=== PATIENT | male | born 1955 | race Two or more races ===

== ENCOUNTER 2022-05-09 22:39 | Emergency (ER) | payer OTHER ==
[~2022-05-09] VITALS: Ht 182.9 cm; Wt 93.9 kg
[2022-05-09 22:47] VITALS: BP 144/97
--- NOTE | 2022-05-09 23:27 | NUR ---
PT TAKEN TO BED 9
--- NOTE | 2022-05-09 23:31 | NUR ---
66 yo m bib self with c/c of rash to face and neck x1 month. +itching. denies pain and trouble breathing. pt went to [facility] and was given siver sulfadiazine, triamcinolone with no relief. pt states he takes smita daily and feels more relief with that. pt denies new soap, clothes and detergent. denies hx, rx and allergies
--- NOTE | 2022-05-10 00:40 | NUR ---
Dr. Camara examining patient.
[2022-05-10] MEDS ORDERED: MECLIZINE 25 MG TAB PO ONE (00:55)
[2022-05-10] MEDS ORDERED: SULFAMETH/TRIMETH DS 800/160MG 1 TAB PO ONE (00:55)
[2022-05-10] MEDS ORDERED: ONDANSETRON 4 MG ODT PO ONE (00:55)
--- NOTE | 2022-05-10 01:03 | NUR ---
pt medicated per orders.
[2022-05-10] MEDS ORDERED: diphenhydrAMINE 50 MG/ML VIAL IM ONE (01:05)
[2022-05-10] MEDS ORDERED: DIPH-988 PO (01:31)
[2022-05-10] MEDS ORDERED: SULF-59 PO (01:31)
[2022-05-10] MEDS ORDERED: KEN.1C TP (01:31)
[2022-05-10 02:08] VITALS: BP 146/89
--- NOTE | 2022-05-10 02:08 | NUR ---
Patient discharged with v/s stable. Written and verbal after care instructions given and explained. Patient alert, oriented and verbalized understanding of instructions. Ambulatory with steady gait. All questions addressed prior to discharge. ID band removed. Patient advised to follow up with PMD. Rx of benadryl, bactrim, kenalog given. Patient educated on indication of medication including possible reaction and side effects. Opportunity to ask questions provided and answered.
== END 2022-05-10 02:08 | disposition home or self-care (01) ==
LOC: MED 22:39
DX: L02.01 Cutaneous abscess of face (principal); I10 Essential (primary) hypertension; E11.9 Type 2 diabetes mellitus without complications; Z79.899 Other long term (current) drug therapy
CPT/HCPCS: 96372; 99284; J1200; J8597; Q0162

== ENCOUNTER 2022-10-16 18:39 | Emergency (ER) | payer OTHER ==
[~2022-10-16] VITALS: Ht 182.9 cm; Wt 98.9 kg
[~2022-10-16 18:39] MED LIST: DIPH-988 PO; KEN.1C TP; SULF-59 PO
[2022-10-16 18:45] VITALS: BP_SYST 155; BP_SYST 179; BP_DIAS 87; BP_DIAS 94
--- NOTE | 2022-10-16 20:48 | NUR ---
SONYA Napier examining patient.
[2022-10-16] MEDS ORDERED: DEXAMETHASONE 10 MG/ML VIAL IM ONE (20:55)
[2022-10-16] MEDS ORDERED: BACI-416 TP (21:15)
[2022-10-16] MEDS ORDERED: BENC TP (21:15)
[2022-10-16 21:50] VITALS: BP 132/84
--- NOTE | 2022-10-16 21:50 | NUR ---
Patient discharged with v/s stable. Written and verbal after care instructions given and explained. Patient alert, oriented and verbalized understanding of instructions. Ambulatory with steady gait. All questions addressed prior to discharge. ID band removed. Patient advised to follow up with PMD. Rx of BACITRACIN, BENADRYL given. Patient educated on indication of medication including possible reaction and side effects. Opportunity to ask questions provided and answered.
== END 2022-10-16 21:50 | disposition home or self-care (01) ==
LOC: MED 18:39
DX: R21 Rash and other nonspecific skin eruption (principal)
CPT/HCPCS: 96372; 99283; J1100